=== PATIENT | male | born 1995 | race African-American/Black ===

== ENCOUNTER 2019-02-28 12:35 | Emergency (ER) | payer OTHER ==
[2019-02-28] MEDS ORDERED: Lidocaine 1% MDV 20 ML INJ ONE (13:00)
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
[2019-02-28] MEDS ORDERED: Lidocaine 1% INJ* 10 MG/ML 30 ML SDV ONE (13:10)
[2019-02-28] MEDS ORDERED: LIDOCAINE 1% ONE (13:10)
[2019-02-28] MEDS ORDERED: Tetan/Diph/Pertus SYR(Tdap)* 0.5 ML SYR(BOOSTRIX) use SYR IM ONE (13:57)
[2019-02-28 14:38] VITALS: BP 145/96
== END 2019-02-28 14:36 | disposition home or self-care (01) ==
LOC: ED 12:35
DX: S01.81XA Laceration without foreign body of other part of head, initial encounter (principal); Z23 Encounter for immunization; X99.9XXA Assault by unspecified sharp object, initial encounter
CPT/HCPCS: 12015; 90471; 90715; 96372; 99283